=== PATIENT | male | born 1985 | race Caucasian/White ===

== ENCOUNTER 2018-02-15 20:10 | Emergency (ER) | payer OTHER ==
[~2018-02-15] VITALS: Ht 180.3 cm; Wt 79.4 kg
[2018-02-15 20:35] LABS: URINE BILIRUBIN NEGATIVE (Negative); URINE BLOOD NEGATIVE (Negative); URINE CLARITY CLEAR; URINE COLOR YELLOW; URINE GLUCOSE-RANDOM NEGATIVE (Negative); URINE KETONES NEGATIVE (Negative); URINE LEUKOCYTES-REFLEX NEGATIVE (Negative); URINE NITRITE-REFLEX NEGATIVE (Negative); URINE PROTEIN NEGATIVE (Negative); URINE SPECIFIC GRAVITY <= 1.005 (1.005-1.030); URINE UROBILINOGEN 0.2 E.U./dl (0.2-1.0)
[2018-02-15 21:06] VITALS: BP 137/80
== END 2018-02-15 21:08 | disposition home or self-care (01) ==
LOC: M.ERS 20:10
PROVIDERS: Nurse Practitioner Family
DX: R30.0 Dysuria (principal); Z20.2 Contact with and (suspected) exposure to infections with a predominantly sexual mode of transmission; F17.200 Nicotine dependence, unspecified, uncomplicated

== ENCOUNTER 2019-04-17 17:26 | Emergency (ER) | payer OTHER ==
[~2019-04-17] VITALS: Ht 180.3 cm; Wt 83.9 kg
[2019-04-17 17:31] VITALS: BP 161/91
[2019-04-17] MEDS ORDERED: AMOXICILLIN 50500 MG PO (17:43)
[2019-04-17] MEDS ORDERED: IBUPROFEN 800800 M1 PO (17:43)
[2019-04-17] MEDS ORDERED: TRAMADOL 50 MG50 MG PO (17:43)
== END 2019-04-17 18:08 | disposition home or self-care (01) ==
LOC: M.ERS 17:26
DX: J02.0 Streptococcal pharyngitis (principal)